=== PATIENT | female | born 1970 | race Caucasian/White ===

== ENCOUNTER → 2018-01-20 | Outpatient (CLI) | payer MEDICARE, MEDICAID | LOC: COL.RAD 08:08 | DX: M19.031 Primary osteoarthritis, right wrist (principal) | CPT/HCPCS: A9585; Q9967 ==

== ENCOUNTER → 2018-01-31 | Outpatient (CLI) | payer MEDICARE, MEDICAID | LOC: COL.RAD 10:26 | DX: M24.131 Other articular cartilage disorders, right wrist (principal) | CPT/HCPCS: J3301; Q9967 ==

== ENCOUNTER 2018-02-04 13:21 | Day surgery (SDC) | payer MEDICARE, MEDICAID ==
[~2018-02-04] VITALS: Ht 152.4 cm; Wt 72.3 kg
[2018-02-04] MEDS ORDERED: INDERAL 10MG10 MG PO (13:30)
[2018-02-04] MEDS ORDERED: VENTOLIN0.09 MG IH (13:30)
[2018-02-04] MEDS ORDERED: REQUIP 1MG T1 MG/TAB PO (13:31)
[2018-02-04] MEDS ORDERED: SINGULAIR 110 MG/TAB PO (13:31)
[2018-02-04] MEDS ORDERED: PROZAC 20MG20 MG PO (13:32)
[2018-02-04] MEDS ORDERED: LUNESTA3 MG PO (13:32)
[2018-02-04] MEDS ORDERED: VITAMIN D31000 I1 PO (13:33)
[2018-02-04] MEDS ORDERED: CLARITIN 1010 MG/TAB PO (13:33)
[2018-02-04] MEDS ORDERED: PROTONIX 40MG T40 MG PO (13:33)
[2018-02-04] MEDS ORDERED: BLACK COHOSH40 MG PO (13:36)
[2018-02-04] MEDS ORDERED: ALEVE LIQCAPS PO (13:36)
[2018-02-04] MEDS ORDERED: WOMEN'S DAILY1 TAB PO (13:36)
[2018-02-04 14:17] VITALS: BP 131/77; PULSE 67; TEMP 98.6
[2018-02-04 15:40] VITALS: BP 126/71; PULSE 64
[2018-02-04 15:45] VITALS: BP 121/76; PULSE 58
[2018-02-04 16:00] VITALS: BP 126/76; PULSE 58
[2018-02-04 16:15] VITALS: BP 119/72; PULSE 56
== END 2018-02-04 16:33 | disposition home or self-care (01) ==
LOC: SDCO 13:21
DX: K21.0 Gastro-esophageal reflux disease with esophagitis (principal); K44.9 Diaphragmatic hernia without obstruction or gangrene; K57.30 Diverticulosis of large intestine without perforation or abscess without bleeding; K52.9 Noninfective gastroenteritis and colitis, unspecified; K59.09 Other constipation; F41.9 Anxiety disorder, unspecified; F32.9 Major depressive disorder, single episode, unspecified; J45.909 Unspecified asthma, uncomplicated; K82.4 Cholesterolosis of gallbladder; Z88.0 Allergy status to penicillin; Z88.2 Allergy status to sulfonamides; Z83.71 Family history of colonic polyps; Z83.79 Family history of other diseases of the digestive system
CPT/HCPCS: J2250; J3010; J7030

== ENCOUNTER → 2018-03-17 | Outpatient (CLI) | payer MEDICARE, MEDICAID ==
[~2018-03-17] MED LIST: ALEVE LIQCAPS PO; BLACK COHOSH40 MG PO; CLARITIN 1010 MG/TAB PO; INDERAL 10MG10 MG PO; LUNESTA3 MG PO; PROTONIX 40MG T40 MG PO; PROZAC 20MG20 MG PO; REQUIP 1MG T1 MG/TAB PO; SINGULAIR 110 MG/TAB PO; VENTOLIN0.09 MG IH; VITAMIN D31000 I1 PO; WOMEN'S DAILY1 TAB PO
== END ==
LOC: COL.RAD 10:02
DX: M54.9 Dorsalgia, unspecified (principal); K59.00 Constipation, unspecified; R12 Heartburn
CPT/HCPCS: A9537

== ENCOUNTER → 2018-03-23 | Outpatient (CLI) | payer MEDICARE, MEDICAID | LOC: COL.RAD 08:12 | DX: K59.00 Constipation, unspecified (principal); M54.9 Dorsalgia, unspecified; R12 Heartburn; R10.9 Unspecified abdominal pain | CPT/HCPCS: A9541 ==

== ENCOUNTER → 2021-03-24 | Outpatient (CLI) | payer MEDICARE, MEDICAID | LOC: MHCPAIN 14:02 | DX: M47.896 Other spondylosis, lumbar region (principal); M53.3 Sacrococcygeal disorders, not elsewhere classified; M54.16 Radiculopathy, lumbar region | CPT/HCPCS: G0463 ==